=== PATIENT | female | born 1955 | race African-American/Black ===

== ENCOUNTER 2021-12-11 04:54 | Inpatient (IN) | payer MEDICARE, MEDICAID ==
[~2021-12-11] VITALS: Ht 162.6 cm; Wt 69.1 kg
--- NOTE | 2021-12-11 05:06 | PHYS DOC ---
General Adult EDM: Chief Complaint: NAUSEA/VOMITING/DIARRHEA HPI: HPI: Patient is a 66 year old [f__sex] who presents with [] (SCOOBYLEONCIO LYMAN ) HPI: This is a 66-year-old female presents with nausea and vomiting since last night as well as some shortness of breath and chest discomfort. She has had a cough productive of some thick yellow sputum. She has felt febrile at home but it is unclear what her temperature has been. She is short of breath particularly with exertion and less so at rest. Chest pain present with coughing. Patient has been vaccinated for Covid. No sick contacts. No recent trauma. No diarrhea. (NUBIA HIDALGO MD) Review of Systems: Review of Systems: Constitutional: Denies fever or chills. [] Eyes: Denies change in visual acuity. [] HENT: Denies nasal congestion or sore throat. [] Respiratory: Denies cough or shortness of breath. [] Cardiovascular: Denies chest pain or edema. [] GI: Denies abdominal pain, nausea, vomiting, bloody stools or diarrhea. [] : Denies dysuria. [] Musculoskeletal: Denies back pain or joint pain. [] Integument: Denies rash. [] Neurologic: Denies headache, focal weakness or sensory changes. [] Endocrine: Denies polyuria or polydipsia. [] Lymphatic: Denies swollen glands. [] Psychiatric: Denies depression or anxiety. [] (LEONCIO ALMODOVAR DO) Review of Systems: Constitutional: Positive for fever Eyes: Denies change in visual acuity or eye pain HENT: Denies sore throat Respiratory: Reports shortness of breath Cardiovascular: Reports chest pain GI: Reports abd pain : Denies dysuria Musculoskeletal: Denies back or extremity injury Integument: Denies rash or skin lesions Neurologic: Denies headache, focal weakness or sensory changes All other systems were reviewed and found to be within normal limits, except as documented in this note. (NUBIA HIDALGO MD) Heart Score: Risk Factors: Risk Factors: DM, Current or recent (<one month) smoker, HTN, HLP, family history of CAD, obesity. Risk Scores: Score 0 - 3: 2.5% MACE over next 6 weeks - Discharge Home Score 4 - 6: 20.3% MACE over next 6 weeks - Admit for Clinical Observation Score 7 - 10: 72.7% MACE over next 6 weeks - Early Invasive Strategies (SCOOBY,LEONCIO M DO) C/O Chest Pain: Yes HEART Score for Chest Pain: HEART Score for Chest Pain Response (Comments) Value History Slighlty/Non-Suspicious 0 ECG Nonspecific Repolarizatio 1 Age > 65 2 Risk Factors 1 or 2 Risk Factors 1 Troponin < Normal Limit 0 Total 4 (NUBIA HIDALGO MD) Physical Exam: PE: Constitutional: Well developed, well nourished, no acute distress, non-toxic appearance. [] HENT: Normocephalic, atraumatic, bilateral external ears normal, oropharynx moist, no oral exudates, nose normal. [] Eyes: PERRLA, EOMI, conjunctiva normal, no discharge. [] Neck: Normal range of motion, no tenderness, supple, no stridor. [] Cardiovascular:Heart rate regular rhythm, no murmur [] Lungs & Thorax: Bilateral breath sounds clear to auscultation [] Abdomen: Bowel sounds normal, soft, no tenderness, no masses, no pulsatile masses. [] Skin: Warm, dry, no erythema, no rash. [] Back: No tenderness, no CVA tenderness. [] Extremities: No tenderness, no cyanosis, no clubbing, ROM intact, no edema. [] Neurologic: Alert and oriented X 3, normal motor function, normal sensory function, no focal deficits noted. [] Psychologic: Affect normal, judgement normal, mood normal. [] (SCOOBY,LEONCIO M DO) PE: Constitutional: Well developed, well nourished, mild distress secondary to na usea and coughing, non-toxic appearance. HENT: Normocephalic, atraumatic, bilateral external ears normal, mucosa moist, nose normal. Eyes: EOMI, conjunctiva normal, no discharge. Neck: Normal range of motion, supple, no stridor, no meningeal signs. Cardiovascular: Patient is tachycardic with a rate of about 130, regular rhythm Lungs & Thorax: Scattered wheezes present bilaterally with overall good air exchange Abdomen: Soft, mild generalized tenderness, no obvious masses Skin: Warm, dry, no erythema, no rash. Extremities: No tenderness, no cyanosis, no clubbing, ROM intact, no edema. Neurologic: Alert and oriented, normal motor function, normal sensory function, no focal deficits noted. Psychologic: Affect normal, judgement normal, mood normal. (NUBIA HIDALGO MD) EKG: EKG: [] (SCOOBYJAYN Susan MCBRIDE) EKG: Twelve-lead EKG demonstrates a sinus rhythm with a rate of 129 bpm. [place] interval is 126 ms, QRS is 76 and QT corrected is 468. No ST segment elevation or depression.there is quite a bit of artifact present on the EKG. Good R wave progression no clinically pertinent Q waves. (NUBIA HIDALGO MD) Radiology/Procedures: Radiology/Procedures: [] (SCOOBYJAY LYMANN Susan MCBRIDE) Impression: PATIENT: ANGEL RODRIGUEZ ACCOUNT: [id number] : 1955 LOCATION: ER AGE: 66 SEX: F EXAM STATUS: PRE ER ORD. PHYSICIAN: NUBIA HIDALGO MD REASON: dyspnea, abd pain;OMNI 300, 75ML PROCEDURE: CT CHEST ABD PELVIS W/CONTRAST EXAM: CT CHEST, ABDOMEN, AND PELVIS WITH CONTRAST INDICATION: Dyspnea, abdominal pain COMPARISON: None TECHNIQUE: Helical CT imaging performed of the chest, abdomen and pelvis after administration of 75 mL Omnipaque 300 intravenous contrast. Sagittal and coronal reformats were obtained. One or more of the following individualized dose reduction techniques were utilized for this examination: 1. Automated exposure control 2. Adjustment of the mA and/or kV according to patient size 3. Use of iterative reconstruction technique. FINDINGS: CHEST: Thyroid gland and thoracic inlet: Normal. Heart and great vessels: The heart is normal in size. There is no pericardial effusion. Thoracic aorta is normal in caliber. Central pulmonary arteries are clear. Mediastinum and river: No lymphadenopathy. Lungs and pleura: The lungs are clear. No pleural effusion or pneumothorax. Chest wall and axillae: No axillary lymphadenopathy. Bones: No acute osseous abnormality in the chest. There is dextroscoliosis of the thoracic spine. ABDOMEN AND PELVIS: Liver: Normal. Gallbladder/Biliary Tree: Normal. Pancreas: Normal. Spleen: Normal. Adrenal Glands: Normal. Kidneys/Ureters/Bladder: Normal. No hydronephrosis. Reproductive Organs: Uterus is surgically absent. No adnexal mass. Stomach, small bowel, and colon: Stomach, small bowel, and appendix are normal. Mild colonic diverticulosis. Vasculature: No aortic aneurysm. Mild calcified aortoiliac atherosclerosis. Lymph Nodes: No lymphadenopathy. Peritoneum and retroperitoneum: No free fluid or free air. Bones: No acute osseous abnormality in the abdomen and pelvis. Mild degenerative disc disease at L3-L4 and L4-L5. IMPRESSION: 1. No acute abnormality in the chest, abdomen, or pelvis. 2. Mild colonic diverticulosis. Electronically signed by: Bienvenido Calderon MD (12/11/2021 7:10 AM) [facility] DICTATED and SIGNED BY: BIENVENIDO CALDERON MD DATE: 12/11/21 [id number] (NUBIA HIDALGO MD) Course & Med Decision Making: Course & Med Decision Making Pertinent Labs and Imaging studies reviewed. (See chart for details) [] (LEONCIO ALMODOVAR DO) Course & Med Decision Making Is a 66-year-old female with nausea and vomiting. She has received IV fluids with Zofran and Pepcid in the ED and really did not have much resolution of symptoms. She has stated that she has had some pain coughing but on CT scan of the chest abdomen pelvis there is no evidence of pneumonia, pneumothorax or other acute process. An EKG there was quite a bit of artifact on the first but on the second there was mild ST depression in the inferior leads and the lateral precordial leads. Her troponin is well within normal limits though. We sent off a repeat and we will keep her in the hospital as her heart rate remains in the 1 teens or at this time even after the IV fluids. I spoke with the hospitalist, Dr Bhandari, who has been kind left to keep her in the hospital for observation and further work-up as indicated, she is in stable guarded condition at this time. (NUBIA HIDALGO MD) Dragon Disclaimer: Dragon Disclaimer: This electronic medical record was generated, in whole or in part, using a voice recognition dictation system. (LEONCIO ALMODOVAR DO) Departure Departure Impression: Primary Impression: Intractable nausea and vomiting Additional Impression: Sinus tachycardia Disposition: ADMITTED INPATIENT Condition: GUARDED LEONCIO ALMODOVAR DO Dec 11, 2021 05:06 NUBIA HIDALGO MD Dec 11, 2021 05:24
[2021-12-11] MEDS ORDERED: ONDANSETRON PF 4 MG/2 ML VIAL. ONE (05:39)
[2021-12-11] MEDS ORDERED: PANTOPRAZOLE IV PUSH 40 MG VIAL. IVP ONE (05:40)
[2021-12-11] MEDS ORDERED: CONTRAST GIVEN. MC PRN (05:45)
[2021-12-11 05:59] LABS: BASO % 1 % (0-3); EOS % 0 % (0-3); HEMATOCRIT 41.3 % (36.0-47.0); LYMPH # 2.6 x10^3/uL (1.0-4.8); LYMPH % 42 % (24-48); MEAN CORPUSCULAR HEMOGLOBIN 28 pg (25-35); MEAN CORPUSCULAR HGB CONC 34 g/dL (31-37); MEAN CORPUSCULAR VOLUME 81 fL (79-100); MONO # 0.7 x10^3/uL (0.0-1.1); MONO % 12 % (0-9); NEUT # 2.8 x10^3/uL (1.8-7.7); NEUT % 45 % (31-73); PLATELET COUNT 341 x10^3/uL (140-400); RED BLOOD COUNT 5.07 x10^6/uL (3.50-5.40); RED CELL DISTRIBUTION WIDTH 13.3 % (11.5-14.5); WHITE BLOOD COUNT 6.1 x10^3/uL (4.0-11.0)
[2021-12-11 06:00] LABS: CALCIUM 9.1 mg/dL (8.5-10.1); CREATININE 0.7 mg/dL (0.6-1.0); POTASSIUM 3.3 mmol/L (3.5-5.1)
[2021-12-11] MEDS ORDERED: ONDANSETRON PF 4 MG/2 ML VIAL. IVP ONE (06:00)
[2021-12-11] MEDS ORDERED: IV NORMAL SALINE 1000ML BAG 1,000 ML IV ONE ×2 (06:00→07:00)
[2021-12-11] MEDS ORDERED: FAMOTIDINE 20 MG/2 ML VIAL IVP ONE (06:00)
[2021-12-11] MEDS ORDERED: IOHEXOL 300 MG/ML 100ML VIAL. IV ONE (06:00)
[2021-12-11 06:06] LABS: ALBUMIN 3.7 g/dL (3.4-5.0); ALBUMIN/GLOBULIN RATIO 0.9 (1.0-1.7); TOTAL BILIRUBIN 0.5 mg/dL (0.2-1.0); TOTAL PROTEIN 7.9 g/dL (6.4-8.2)
[2021-12-11 06:08] LABS: PROTHROMBIN TIME PATIENT 12.3 SEC (11.7-14.0)
[2021-12-11 06:19] LABS: INFLUENZA A PATIENT NEGATIVE (NEGATIVE); INFLUENZA B PATIENT NEGATIVE (NEGATIVE)
[2021-12-11] MEDS ORDERED: MORPHINE SULFATE 2 MG/ML INJ. IVP ONE (07:00)
[2021-12-11] MEDS ORDERED: PROMETHAZINE 12.5 MG TABLET. PO ONE (07:00)
--- NOTE | 2021-12-11 07:12 | RAD ---
EXAM: CT CHEST, ABDOMEN, AND PELVIS WITH CONTRAST INDICATION: Dyspnea, abdominal pain COMPARISON: None TECHNIQUE: Helical CT imaging performed of the chest, abdomen and pelvis after administration of 75 m L Omnipaque 300 intravenous contrast. Sagittal and coronal reformats were obtained. One or more of the following individualized dose reduction techniques were utilized for this examinat ion: 1. Automated exposure control 2. Adjustment of the mA and/or kV according to patient size 3. Use of iterative reconstruction technique. FINDINGS: CHEST: Thyroid gland and thoracic inlet: Normal. Heart and great vessels: The heart is normal in size. There is no pericardial effusion. Thoracic aort a is normal in caliber. Central pulmonary arteries are clear. Mediastinum and river: No lymphadenopathy. Lungs and pleura: The lungs are clear. No pleural effusion or pneumothorax. Chest wall and axillae: No axillary lymphadenopathy. Bones: No acute osseous abnormality in the chest. There is dextroscoliosis of the thoracic spine. ABDOMEN AND PELVIS: Liver: Normal. Gallbladder/Biliary Tree: Normal. Pancreas: Normal. Spleen: Normal. Adrenal Glands: Normal. Kidneys/Ureters/Bladder: Normal. No hydronephrosis. Reproductive Organs: Uterus is surgically absent. No adnexal mass. Stomach, small bowel, and colon: Stomach, small bowel, and appendix are normal. Mild colonic divertic ulosis. Vasculature: No aortic aneurysm. Mild calcified aortoiliac atherosclerosis. Lymph Nodes: No lymphadenopathy. Peritoneum and retroperitoneum: No free fluid or free air. Bones: No acute osseous abnormality in the abdomen and pelvis. Mild degenerative disc disease at L3-L 4 and L4-L5. IMPRESSION: 1. No acute abnormality in the chest, abdomen, or pelvis. 2. Mild colonic diverticulosis. Electronically signed by: Dora Calderon MD (12/11/2021 7:10 AM) [facility]
[2021-12-11] MEDS ORDERED: NITROGLYCERIN OINT 1 GM PACKET. TP ONE (07:30)
[2021-12-11] MEDS ORDERED: ASPIRIN CHEWABLE 81 MG TABLET. PO ONE (07:30)
--- NOTE | 2021-12-11 07:31 | EKG ---
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
--- NOTE | 2021-12-11 08:51 | PDOC1 ---
History and Physical Date of Service: DOS: DATE: 12/11/21 TIME: 08:50 Chief Complaint: Chief Complain: Nausea vomiting and diarrhea History of Present Illness: HPI: History obtained from discussion with the ED physician and chart review: 66-year-old female with no significant past medical history except for marijuana use daily for glaucoma who comes in with chest discomfort and abdominal pain. She also endorses diarrhea that is mucousy and also some vomiting after that. She states that she had a cold sweat at home but she is unable to tell us what temperature she had. Patient is Covid vaccinated. Patient states that when she was walking she might of tripped and fell and landed her right side of her rib. She states that her chest discomfort mainly comes from this incident. 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 Denies any palpitations, syncope, constipation, or bloody stools or hematemesis. Patient has shortness of breath while at rest. Past Medical/Surgical History: PMH/PSH: Glaucoma Allergies: Allergies: Coded Allergies: No Known Drug Allergies (Unverified , 12/11/21) Family History: Family History: Reviewed with no relevant findings in the chart Social History: Social History: Daily marijuana use Current Medications: Current Medications Current Medications Sodium Chloride 1,000 ml @ 1,000 mls/hr 1X ONCE IV Last administered on 12/11/21at 05:43; Start 12/11/21 at 06:00; Stop 12/11/21 at 06:59; Status DC Ondansetron HCl (Zofran) 4 mg 1X ONCE IVP Last administered on 12/11/21at 05:43; Start 12/11/21 at 06:00; Stop 12/11/21 at 06:01; Status DC Famotidine (Pepcid Vial) 20 mg 1X ONCE IVP Last administered on 12/11/21at 05:45; Start 12/11/21 at 06:00; Stop 12/11/21 at 06:01; Status DC Iohexol (Omnipaque 300 Mg/ml) 75 ml 1X ONCE IV Last administered on 12/11/21at 06:15; Start 12/11/21 at 06:00; Stop 12/11/21 at 06:01; Status DC Ondansetron HCl (Zofran) 4 mg STK-MED ONCE .ROUTE ; Start 12/11/21 at 05:39; Stop 12/11/21 at 05:40; Status DC Pantoprazole Sodium (PROTONIX VIAL for IV PUSH) 40 mg STK-MED ONCE IVP ; Start 12/11/21 at 05:40; Stop 12/11/21 at 05:40; Status DC Info (CONTRAST GIVEN -- Rx MONITORING) 1 each PRN DAILY PRN MC SEE COMMENTS; Start 12/11/21 at 05:45; Stop 12/13/21 at 05:44 Sodium Chloride 1,000 ml @ 1,000 mls/hr 1X ONCE IV Last administered on 12/11/21at 07:00; Start 12/11/21 at 07:00; Stop 12/11/21 at 07:59; Status DC Promethazine HCl (Phenergan) 25 mg 1X ONCE PO Last administered on 12/11/21at 07:00; Start 12/11/21 at 07:00; Stop 12/11/21 at 07:01; Status DC Morphine Sulfate (Morphine Sulfate) 2 mg 1X ONCE IVP Last administered on 12/11/21at 07:00; Start 12/11/21 at 07:00; Stop 12/11/21 at 07:01; Status DC Aspirin (Aspirin Chewable) 324 mg 1X ONCE PO Last administered on 12/11/21at 07:30; Start 12/11/21 at 07:30; Stop 12/11/21 at 07:32; Status DC Nitroglycerin (Nitro-Bid Oint) 0.5 inch 1X ONCE TP Last administered on 12/11/21at 07:30; Start 12/11/21 at 07:30; Stop 12/11/21 at 07:32; Status DC ROS: Review of Systems Review of System REVIEW OF SYSTEMS: GENERAL: Denies weakness SKIN: No bruising, hair changes or rashes. EYES: No blurred, double or loss of vision. NOSE AND THROAT: No history of nosebleeds, hoarseness or sore throat. HEART: No history of palpitations, chest pain or shortness of breath on exertion. LUNGS: Denies cough, hemoptysis, wheezing or shortness of breath. GASTROINTESTINAL: Positive for nausea vomiting abdominal pain and diarrhea GENITOURINARY: No history of frequency, urgency, hesitancy or nocturia. NEUROLOGIC: Denies history of numbness, tingling, or tremor. PSYCHIATRIC: No history of panic, anxiety or depression. ENDOCRINE: No history of heat or cold intolerance, polyuria or polydipsia. EXTREMITIES: Denies joint pain, pain on walking or stiffness. Physical Exam: Vital Signs: Vital Signs Date Time Temp Pulse Resp B/P (MAP) Pulse Ox O2 Delivery O2 Flow Rate FiO2 12/11/21 07:35 128 18 164/79 (107) 97 Room Air 12/11/21 04:54 98.1 98.1 Physcial Exam: General: Well developed, well nourished, no acute distress, well appearing HEENT: Pupils equally round and reactive to light, EOMI, no discharge, normal conjunctiva. Dry mucous membranes Neck: Supple, no nuchal rigidity, no JVD, trachea midline, no tenderness Cardiac: RRR, no murmurs, no gallops, no rubs Chest/Lungs: CTAB, no wheeze, no rhonchi, no crackles Abdomen: soft, non-distended, no guarding, no peritoneal signs, diffuse abdominal tenderness Back: No tenderness Extremities: no edema, pulses intact, non-tender,capillary refill <3 sec bilate ral upper and lower extremities, Neuro: Alert and oriented x 4, no focal deficits, normal speech Labs: Labs: Laboratory Tests Test 12/11/21 05:25 12/11/21 05:52 White Blood Count 6.1 x10^3/uL (4.0-11.0) Red Blood Count 5.07 x10^6/uL (3.50-5.40) Hemoglobin 14.0 g/dL (12.0-15.5) Hematocrit 41.3 % (36.0-47.0) Mean Corpuscular Volume 81 fL (79-100) Mean Corpuscular Hemoglobin 28 pg (25-35) Mean Corpuscular Hemoglobin Concent 34 g/dL (31-37) Red Cell Distribution Width 13.3 % (11.5-14.5) Platelet Count 341 x10^3/uL (140-400) Neutrophils (%) (Auto) 45 % (31-73) Lymphocytes (%) (Auto) 42 % (24-48) Monocytes (%) (Auto) 12 % (0-9) Eosinophils (%) (Auto) 0 % (0-3) Basophils (%) (Auto) 1 % (0-3) Neutrophils # (Auto) 2.8 x10^3/uL (1.8-7.7) Lymphocytes # (Auto) 2.6 x10^3/uL (1.0-4.8) Monocytes # (Auto) 0.7 x10^3/uL (0.0-1.1) Eosinophils # (Auto) 0.0 x10^3/uL (0.0-0.7) Basophils # (Auto) 0.0 x10^3/uL (0.0-0.2) Prothrombin Time 12.3 SEC (11.7-14.0) Prothromb Time International Ratio 0.9 (0.8-1.1) Activated Partial Thromboplast Time 26 SEC (24-38) Sodium Level 131 mmol/L (136-145) Potassium Level 3.3 mmol/L (3.5-5.1) Chloride Level 96 mmol/L (98-107) Carbon Dioxide Level 21 mmol/L (21-32) Anion Gap 14 (6-14) Blood Urea Nitrogen 12 mg/dL (7-20) Creatinine 0.7 mg/dL (0.6-1.0) Estimated GFR (Cockcroft-Gault) 84.0 BUN/Creatinine Ratio 17 (6-20) Glucose Level 190 mg/dL (70-99) Lactic Acid Level 1.8 mmol/L (0.4-2.0) Calcium Level 9.1 mg/dL (8.5-10.1) Magnesium Level 2.0 mg/dL (1.8-2.4) Total Bilirubin 0.5 mg/dL (0.2-1.0) Aspartate Amino Transf (AST/SGOT) 58 U/L (15-37) Alanine Aminotransferase (ALT/SGPT) 49 U/L (14-59) Alkaline Phosphatase 86 U/L (46-116) Troponin I High Sensitivity 12 ng/L (4-50) GM-Day-Z-Type Natriuretic Peptide 208 pg/mL (0-124) Total Protein 7.9 g/dL (6.4-8.2) Albumin 3.7 g/dL (3.4-5.0) Albumin/Globulin Ratio 0.9 (1.0-1.7) Lipase 28 U/L (73-393) Influenza Type A Antigen Negative (NEGATIVE) Influenza Type B Antigen Negative (NEGATIVE) SARS-CoV-2 Antigen (Rapid) Negative (NEGATIVE) Laboratory Tests Test 12/11/21 05:25 12/11/21 05:52 White Blood Count 6.1 x10^3/uL (4.0-11.0) Red Blood Count 5.07 x10^6/uL (3.50-5.40) Hemoglobin 14.0 g/dL (12.0-15.5) Hematocrit 41.3 % (36.0-47.0) Mean Corpuscular Volume 81 fL (79-100) Mean Corpuscular Hemoglobin 28 pg (25-35) Mean Corpuscular Hemoglobin Concent 34 g/dL (31-37) Red Cell Distribution Width 13.3 % (11.5-14.5) Platelet Count 341 x10^3/uL (140-400) Neutrophils (%) (Auto) 45 % (31-73) Lymphocytes (%) (Auto) 42 % (24-48) Monocytes (%) (Auto) 12 % (0-9) Eosinophils (%) (Auto) 0 % (0-3) Basophils (%) (Auto) 1 % (0-3) Neutrophils # (Auto) 2.8 x10^3/uL (1.8-7.7) Lymphocytes # (Auto) 2.6 x10^3/uL (1.0-4.8) Monocytes # (Auto) 0.7 x10^3/uL (0.0-1.1) Eosinophils # (Auto) 0.0 x10^3/uL (0.0-0.7) Basophils # (Auto) 0.0 x10^3/uL (0.0-0.2) Prothrombin Time 12.3 SEC (11.7-14.0) Prothromb Time International Ratio 0.9 (0.8-1.1) Activated Partial Thromboplast Time 26 SEC (24-38) Sodium Level 131 mmol/L (136-145) Potassium Level 3.3 mmol/L (3.5-5.1) Chloride Level 96 mmol/L (98-107) Carbon Dioxide Level 21 mmol/L (21-32) Anion Gap 14 (6-14) Blood Urea Nitrogen 12 mg/dL (7-20) Creatinine 0.7 mg/dL (0.6-1.0) Estimated GFR (Cockcroft-Gault) 84.0 BUN/Creatinine Ratio 17 (6-20) Glucose Level 190 mg/dL (70-99) Lactic Acid Level 1.8 mmol/L (0.4-2.0) Calcium Level 9.1 mg/dL (8.5-10.1) Magnesium Level 2.0 mg/dL (1.8-2.4) Total Bilirubin 0.5 mg/dL (0.2-1.0) Aspartate Amino Transf (AST/SGOT) 58 U/L (15-37) Alanine Aminotransferase (ALT/SGPT) 49 U/L (14-59) Alkaline Phosphatase 86 U/L (46-116) Troponin I High Sensitivity 12 ng/L (4-50) YQ-Dvz-F-Type Natriuretic Peptide 208 pg/mL (0-124) Total Protein 7.9 g/dL (6.4-8.2) Albumin 3.7 g/dL (3.4-5.0) Albumin/Globulin Ratio 0.9 (1.0-1.7) Lipase 28 U/L (73-393) Influenza Type A Antigen Negative (NEGATIVE) Influenza Type B Antigen Negative (NEGATIVE) SARS-CoV-2 Antigen (Rapid) Negative (NEGATIVE) Images: Images PROCEDURE: CT CHEST ABD PELVIS W/CONTRAST EXAM: CT CHEST, ABDOMEN, AND PELVIS WITH CONTRAST INDICATION: Dyspnea, abdominal pain COMPARISON: None TECHNIQUE: Helical CT imaging performed of the chest, abdomen and pelvis after administration of 75 mL Omnipaque 300 intravenous contrast. Sagittal and coronal reformats were obtained. One or more of the following individualized dose reduction techniques were utilized for this examination: 1. Automated exposure control 2. Adjustment of the mA and/or kV according to patient size 3. Use of iterative reconstruction technique. FINDINGS: CHEST: Thyroid gland and thoracic inlet: Normal. Heart and great vessels: The heart is normal in size. There is no pericardial effusion. Thoracic aorta is normal in caliber. Central pulmonary arteries are clear. Mediastinum and rvier: No lymphadenopathy. Lungs and pleura: The lungs are clear. No pleural effusion or pneumothorax. Chest wall and axillae: No axillary lymphadenopathy. Bones: No acute osseous abnormality in the chest. There is dextroscoliosis of the thoracic spine. ABDOMEN AND PELVIS: Liver: Normal. Gallbladder/Biliary Tree: Normal. Pancreas: Normal. Spleen: Normal. Adrenal Glands: Normal. Kidneys/Ureters/Bladder: Normal. No hydronephrosis. Reproductive Organs: Uterus is surgically absent. No adnexal mass. Stomach, small bowel, and colon: Stomach, small bowel, and appendix are normal. Mild colonic diverticulosis. Vasculature: No aortic aneurysm. Mild calcified aortoiliac atherosclerosis. Lymph Nodes: No lymphadenopathy. Peritoneum and retroperitoneum: No free fluid or free air. Bones: No acute osseous abnormality in the abdomen and pelvis. Mild degenerative disc disease at L3-L4 and L4-L5. IMPRESSION: 1. No acute abnormality in the chest, abdomen, or pelvis. 2. Mild colonic diverticulosis. Assessment/Plan Assessment/Plan Intractable nausea vomiting, possible gastroenteritis Chronic cannabinoid use, concern for cyclic vomiting syndrome Mild hypokalemia Acute electrolyte derangementhyponatremia, hypochloremia suggestive of volume depletion Atypical chest pain due to musculoskeletal trauma Admit to hospitalist service for further management Continue IV fluids Pending stool studies ADA T Continue telemetry monitoring Pending UDS Lovenox for DVT prophylaxis Protonix GI prophylaxis Cardiac diet CODE STATUS full Discussed with RN and SW Disposition inpatient management as above DPOA: Daughter In addition to my E/M visit, advance care planning done with A total time of 20 minutes was spent from 1130 to 1150 face to face in discussion regarding the patient's goals of care, CODE STATUS. Justifications for Admission Other Justification MARKEL QUIÑONEZ MD Dec 11, 2021 08:51
[2021-12-11 11:00] VITALS: BP 143/97
[2021-12-11] MEDS ORDERED: GABA300C18 PO (12:10)
[2021-12-11] MEDS ORDERED: PANT40TA77 PO (12:10)
[2021-12-11] MEDS ORDERED: FAMO-63 PO (12:10)
[2021-12-11] MEDS ORDERED: AMLO-187 PO (12:10)
[2021-12-11] MEDS ORDERED: DIPH25CA58 PO (12:10)
[2021-12-11] MEDS ORDERED: MECL12.582 PO (12:10)
[2021-12-11] MEDS ORDERED: METO200T46 PO (12:10)
[2021-12-11] MEDS ORDERED: TRAM50TA PO (12:10)
[2021-12-11] MEDS ORDERED: CYCL10TA19 PO (12:13)
[2021-12-11] MEDS ORDERED: SITA50TA PO (12:13)
[2021-12-11] MEDS ORDERED: diphenhydrAMINE 50 MG/ML VIAL IVP PRN (14:45)
[2021-12-11] MEDS ORDERED: ZOLPIDEM 5 MG TABLET. PO PRN (14:45)
[2021-12-11] MEDS ORDERED: SENNOSIDES 8.6 MG TABLET PO PRN (14:45)
[2021-12-11] MEDS ORDERED: PROCHLORPERAZINE 10 MG/2 ML VIAL. IV PRN (14:45)
[2021-12-11] MEDS ORDERED: DOCUSATE SODIUM 100 MG CAPSULE. PO PRN (14:45)
[2021-12-11] MEDS ORDERED: DEXTROSE 50% 25 GM / 50ML DISP.SYRIN. IV PRN (14:45)
[2021-12-11] MEDS ORDERED: LORazepam 0.5 MG TABLET PO PRN (14:45)
[2021-12-11] MEDS ORDERED: diphenhydrAMINE HCL 25 MG CAPSULE PO PRN ×2 (14:45)
[2021-12-11 15:00] VITALS: BP 166/96
[2021-12-11] MEDS: ACETAMINOPHEN 325 MG TABLET. PO PRN ×2 (15:58→23:41)
[2021-12-11] MEDS: IV NORMAL SALINE 1000ML BAG 1,000 ML IV SCH (15:59)
[2021-12-11] MEDS: ENOXAPARIN 40 MG/0.4 ML SYRINGE. SQ SCH (16:00)
[2021-12-11] MEDS: ONDANSETRON PF 4 MG/2 ML VIAL. IVP PRN (18:33)
[2021-12-11 19:00] VITALS: BP_SYST 133; BP_SYST 138; BP_DIAS 88; BP_DIAS 94
[2021-12-11 23:00] VITALS: BP 138/94
[2021-12-12] MEDS: IV NORMAL SALINE 1000ML BAG 1,000 ML IV SCH ×3 (00:45→21:03)
[2021-12-12 03:00] VITALS: BP 136/86
[2021-12-12] MEDS: ONDANSETRON PF 4 MG/2 ML VIAL. IVP PRN ×2 (04:11→15:35)
[2021-12-12 06:18] LABS: CALCIUM 7.7 mg/dL (8.5-10.1); CREATININE 0.7 mg/dL (0.6-1.0); GFR 101.6; MAGNESIUM 1.7 mg/dL (1.8-2.4); PHOSPHORUS 2.3 mg/dL (2.6-4.7)
[2021-12-12 07:00] VITALS: BP 148/92
[2021-12-12 07:14] LABS: BASO % 1 % (0-3); EOS % 1 % (0-3); HEMATOCRIT 37.9 % (36.0-47.0); HEMOGLOBIN 12.4 g/dL (12.0-15.5); LYMPH # 3.1 x10^3/uL (1.0-4.8); LYMPH % 60 % (24-48); MEAN CORPUSCULAR HEMOGLOBIN 28 pg (25-35); MEAN CORPUSCULAR HGB CONC 33 g/dL (31-37); MEAN CORPUSCULAR VOLUME 85 fL (79-100); MONO # 0.7 x10^3/uL (0.0-1.1); MONO % 14 % (0-9); NEUT # 1.3 x10^3/uL (1.8-7.7); NEUT % 25 % (31-73); PLATELET COUNT 315 x10^3/uL (140-400); RED BLOOD COUNT 4.47 x10^6/uL (3.50-5.40); WHITE BLOOD COUNT 5.2 x10^3/uL (4.0-11.0)
[2021-12-12] MEDS: ACETAMINOPHEN 325 MG TABLET. PO PRN ×2 (07:41→13:43)
[2021-12-12] MEDS: PANTOPRAZOLE IV PUSH 40 MG VIAL. IVP SCH (07:41)
[2021-12-12] MEDS: POTASSIUM CHLORIDE 20 MEQ TABLET.ER. PO SCH ×2 (09:49→21:04)
[2021-12-12] MEDS ORDERED: MAGNESIUM SULFATE 2GM 50 ML IV ONE (10:00)
[2021-12-12 11:00] VITALS: BP 165/89
[2021-12-12] MEDS ORDERED: PHENYLEPH/MINERAL OIL/PETROLAT RECTAL OINTMENT TUBE. RC PRN (11:00)
--- NOTE | 2021-12-12 11:25 | NUR ---
SW following. Discussed with RN, pt from home with s/o, room air, clear liquid diet, rapid COVID-19 negative. RN advised no SW needs at this time, possible discharge in the next 24-48 hours. SW will continue to follow.
[2021-12-12] MEDS: ENOXAPARIN 40 MG/0.4 ML SYRINGE. SQ SCH (13:43)
[2021-12-12 14:16] LABS: AMPHETAMINE/METHAMPHETAMINE NEG (NEG); BARBITURATES NEG (NEG); BENZODIAZEPINES NEG (NEG); CANNABINOIDS POS (NEG); COCAINE NEG (NEG); METHADONE NEG (NEG); OPIATES NEG (NEG); PHENCYCLIDINE NEG (NEG)
--- NOTE | 2021-12-12 14:21 | PDOC ---
[employer] PROGRESS NOTE Date of Service DOS: DATE: 12/12/21 TIME: 14:20 Chief Complaint Chief Complaint Assessment/Plan Intractable nausea vomiting, possible gastroenteritis Chronic cannabinoid use, concern for cyclic vomiting syndrome Mild hypokalemia Acute electrolyte derangementhyponatremia, hypochloremia suggestive of volume depletion Atypical chest pain due to musculoskeletal trauma Admit to hospitalist service for further management Continue IV fluids Pending stool studies ADA T Continue telemetry monitoring Pending UDS Lovenox for DVT prophylaxis Protonix GI prophylaxis Cardiac diet CODE STATUS full Discussed with RN and SW Disposition inpatient management as above DPOA: Daughter History of Present Illness History of Present Illness 66-year-old female with no significant past medical history except for marijuana use daily for glaucoma who comes in with chest discomfort and abdominal pain. She also endorses diarrhea that is mucousy and also some vomiting after that. She states that she had a cold sweat at home but she is unable to tell us what temperature she had. Patient is Covid vaccinated. Patient states that when she was walking she might of tripped and fell and landed her right side of her rib. She states that her chest discomfort mainly comes from this incident. 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 Denies any palpitations, syncope, constipation, or bloody stools or hematemesis. Patient has shortness of breath while at rest. 12/12/2021 No acute events overnight. Patient seen examined bedside. Low potassium of 3.0 and magnesium of 1.7. Pending T4 levels. No more nausea vomiting. Continues to have diarrhea. Pending stool studies. Continue with IV fluids. Patient's chart, labs, images were reviewed and discussed with RN Vitals/I&O Vitals/I&O: Vital Signs Date Time Temp Pulse Resp B/P (MAP) Pulse Ox O2 Delivery O2 Flow Rate FiO2 12/12/21 11:00 97.7 111 20 165/89 (114) 97 Room Air 97.7 I & O 12/11/21 12/11/21 12/12/21 15:00 23:00 07:00 Intake Total 180 ml 300 ml 240 ml Balance 180 ml 300 ml 240 ml Physical Exam General: Alert, Oriented X3, Cooperative Heart: Regular rate Lungs: Clear Abdomen: Normal bowel sounds Extremities: No clubbing Skin: No rashes Labs Labs: Laboratory Tests Test 12/12/21 04:40 12/12/21 13:40 White Blood Count 5.2 x10^3/uL (4.0-11.0) Red Blood Count 4.47 x10^6/uL (3.50-5.40) Hemoglobin 12.4 g/dL (12.0-15.5) Hematocrit 37.9 % (36.0-47.0) Mean Corpuscular Volume 85 fL (79-100) Mean Corpuscular Hemoglobin 28 pg (25-35) Mean Corpuscular Hemoglobin Concent 33 g/dL (31-37) Red Cell Distribution Width 13.0 % (11.5-14.5) Platelet Count 315 x10^3/uL (140-400) Neutrophils (%) (Auto) 25 % (31-73) Lymphocytes (%) (Auto) 60 % (24-48) Monocytes (%) (Auto) 14 % (0-9) Eosinophils (%) (Auto) 1 % (0-3) Basophils (%) (Auto) 1 % (0-3) Neutrophils # (Auto) 1.3 x10^3/uL (1.8-7.7) Lymphocytes # (Auto) 3.1 x10^3/uL (1.0-4.8) Monocytes # (Auto) 0.7 x10^3/uL (0.0-1.1) Eosinophils # (Auto) 0.0 x10^3/uL (0.0-0.7) Basophils # (Auto) 0.0 x10^3/uL (0.0-0.2) Sodium Level 142 mmol/L (136-145) Potassium Level 3.0 mmol/L (3.5-5.1) Chloride Level 104 mmol/L (98-107) Carbon Dioxide Level 25 mmol/L (21-32) Anion Gap 13 (6-14) Blood Urea Nitrogen 3 mg/dL (7-20) Creatinine 0.7 mg/dL (0.6-1.0) Estimated GFR (Cockcroft-Gault) 101.6 Glucose Level 155 mg/dL (70-99) Calcium Level 7.7 mg/dL (8.5-10.1) Phosphorus Level 2.3 mg/dL (2.6-4.7) Magnesium Level 1.7 mg/dL (1.8-2.4) Urine Opiates Screen Neg (NEG) Urine Methadone Screen Neg (NEG) Urine Barbiturates Neg (NEG) Urine Phencyclidine Screen Neg (NEG) Urine Amphetamine/Methamphetamine Neg (NEG) Urine Benzodiazepines Screen Neg (NEG) Urine Cocaine Screen Neg (NEG) Urine Cannabinoids Screen Pos (NEG) Urine Ethyl Alcohol Neg (NEG) Assessment and Plan Assessmemt and Plan Problems Medical Problems: (1) Intractable nausea and vomiting Status: Acute (2) Sinus tachycardia Status: Acute Comment Review of Relevant I have reviewed the following items kristy (where applicable) has been applied. Medications: Current Medications Medications (Trade) Dose Ordered Sig/Ailyn Route PRN Reason Start Time Stop Time Status Last Admin Dose Admin Ondansetron HCl (Zofran) 4 mg PRN Q6HRS PRN IVP NAUSEA/VOMITING, 1st CHOICE 12/11/21 14:45 12/12/21 04:11 Sodium Chloride 1,000 ml @ 100 mls/hr Q10H IV 12/11/21 14:45 12/12/21 07:42 Acetaminophen (Tylenol) 650 mg PRN Q4HRS PRN PO TEMP OVER 100.4F OR MILD PAIN 12/11/21 14:45 12/12/21 13:43 Enoxaparin Sodium (Lovenox 40mg Syringe) 40 mg Q24H SQ 12/11/21 15:00 12/12/21 13:43 Pantoprazole Sodium (PROTONIX VIAL for IV PUSH) 40 mg DAILYAC IVP 12/12/21 07:30 12/12/21 07:41 Magnesium Sulfate 50 ml @ 25 mls/hr 1X ONCE IV 12/12/21 10:00 12/12/21 11:59 DC 12/12/21 09:49 Potassium Chloride (Klor-Con) 40 meq BID PO 12/12/21 09:00 12/13/21 08:59 12/12/21 09:49 Phenyleph/Shark Oil/Min Oil/Petrol (Preparation H) 1 emily PRN QID PRN RC RECTAL PAIN 12/12/21 11:00 12/12/21 11:27 Justifications for Admission Other Justification Intractable nausea vomiting MARKEL QUIÑONEZ MD Dec 12, 2021 14:21
[2021-12-12 14:23] LABS: BILIRUBIN,URINE NEGATIVE (NEG); CLARITY,URINE HAZY; COLOR,URINE YELLOW; NITRITE,URINE NEGATIVE (NEG); PH,URINE 6.5 (<5.0-8.0); PROTEIN,URINE NEGATIVE (NEG-TRACE); UROBILINOGEN,URINE 0.2 mg/dL (0.2 mg/dL)
[2021-12-12 14:26] LABS: HYALINE CASTS, URINE FEW /HPF; YEAST,URINE PRESENT /HPF
[2021-12-12 14:27] LABS: BACTERIA,URINE MODERATE /HPF (0-FEW); RBC,URINE OCC /HPF (0-2); WBC,URINE OCC /HPF (0-4)
[2021-12-12 15:00] VITALS: BP 163/107
[2021-12-12] MEDS: GABAPENTIN 300 MG CAPSULE. PO SCH ×2 (15:03→21:04)
[2021-12-12] MEDS: CYCLOBENZAPRINE 10 MG TABLET. PO SCH ×2 (15:03→21:04)
[2021-12-12] MEDS: MECLIZINE HCL 12.5 MG TABLET. PO SCH (15:04)
[2021-12-12] MEDS: traMADol 50 MG TABLET PO PRN ×2 (15:04→21:04)
[2021-12-12] MEDS: METOPROLOL SUCC 24HR ER 100 MG TAB.ER.24H. PO SCH (15:04)
[2021-12-12] MEDS: diphenhydrAMINE HCL 25 MG CAPSULE PO SCH (15:04)
[2021-12-12 18:57] VITALS: BP 133/83
[2021-12-12 23:00] VITALS: BP 138/78
[2021-12-13] VITALS (7 sets, daily range): BP systolic 113–162; BP diastolic 70–101
[2021-12-13] MEDS: traMADol 50 MG TABLET PO PRN ×3 (05:30→21:58)
[2021-12-13] MEDS: IV NORMAL SALINE 1000ML BAG 1,000 ML IV SCH ×2 (05:31→18:01)
[2021-12-13 08:20] LABS: CALCIUM 8.4 mg/dL (8.5-10.1); CREATININE 0.7 mg/dL (0.6-1.0); GFR 101.6; MAGNESIUM 1.9 mg/dL (1.8-2.4); POTASSIUM 3.5 mmol/L (3.5-5.1)
[2021-12-13 08:35] LABS: BASO % 1 % (0-3); EOS # 0.1 x10^3/uL (0.0-0.7); EOS % 2 % (0-3); HEMATOCRIT 40.1 % (36.0-47.0); HEMOGLOBIN 12.7 g/dL (12.0-15.5); LYMPH # 3.8 x10^3/uL (1.0-4.8); LYMPH % 59 % (24-48); MEAN CORPUSCULAR HEMOGLOBIN 27 pg (25-35); MEAN CORPUSCULAR HGB CONC 32 g/dL (31-37); MEAN CORPUSCULAR VOLUME 86 fL (79-100); MONO # 0.7 x10^3/uL (0.0-1.1); MONO % 12 % (0-9); NEUT # 1.8 x10^3/uL (1.8-7.7); NEUT % 28 % (31-73); PLATELET COUNT 371 x10^3/uL (140-400); RED BLOOD COUNT 4.69 x10^6/uL (3.50-5.40); RED CELL DISTRIBUTION WIDTH 13.3 % (11.5-14.5); WHITE BLOOD COUNT 6.5 x10^3/uL (4.0-11.0)
[2021-12-13] MEDS: diphenhydrAMINE HCL 25 MG CAPSULE PO SCH (08:46)
[2021-12-13] MEDS: MECLIZINE HCL 12.5 MG TABLET. PO SCH (08:46)
[2021-12-13] MEDS: GABAPENTIN 300 MG CAPSULE. PO SCH ×3 (08:47→21:58)
[2021-12-13] MEDS: CYCLOBENZAPRINE 10 MG TABLET. PO SCH ×3 (08:47→21:58)
[2021-12-13] MEDS: METOPROLOL SUCC 24HR ER 100 MG TAB.ER.24H. PO SCH (08:47)
[2021-12-13] MEDS: PANTOPRAZOLE IV PUSH 40 MG VIAL. IVP SCH (08:48)
[2021-12-13] MEDS: ONDANSETRON PF 4 MG/2 ML VIAL. IVP PRN ×2 (08:56→21:58)
--- NOTE | 2021-12-13 10:09 | EKG ---
[facility] [address] [place] [address] Test Date: 2021-12-11 Test Time: 07:20:10 Pat Name: ANGEL RODRIGUEZ Department: Room: [facility] Gender: F [employer]olta[employer] Installer: : [id number] Requested By: LEONCIO ALMODOVAR Order Number: [id number] Reading MD: Tray Hitchcock MD Measurements Intervals [place] Rate: 131 P: -21 SC: 110 QRS: 9 QRSD: 74 T: -7 QT: 316 QTc: 472 Interpretive Statements SINUS TACHYCARDIA LATERAL ISCHEMIA Electronically Signed On 12-17-2021 11:53:00 [employer] by Tray Hitchcock MD
[2021-12-13] MEDS ORDERED: LORA0.5T96 PO (10:15)
[2021-12-13] MEDS ORDERED: LOPERAMIDE 2 MG CAPSULE PO PRN (10:15)
[2021-12-13] MEDS ORDERED: LOPE2TAB27 PO (10:15)
--- NOTE | 2021-12-13 10:54 | NUR ---
SW following. Discussed with RN, discharge order for home with self care if C-diff negative. RN advised no SW needs.
--- NOTE | 2021-12-13 11:39 | DS ---
DATE OF DISCHARGE: 12/13/2021 ADMISSION DIAGNOSES: Intractable nausea, vomiting with probable gastroenteritis. DISCHARGE DIAGNOSES: Resolving gastroenteritis; chronic cannabinoid use; possible cyclic vomiting syndrome; resolving hypokalemia; resolving hyponatremia, hypochloremia; resolving volume depletion; atypical chest pain. HOSPITAL COURSE: The patient is a pleasant, middle-aged female who presented with some nausea, vomiting and diarrhea. We gave her p.r.n. antiemetics and IV fluids. Today, I ordered some p.r.n. loperamide. She is doing much better, looks good. We plan to advance her diet. If her C. diff testing is negative, we hope to discharge this afternoon. DISPOSITION: Home. ACTIVITY: As tolerated. DIET: Low sodium. DISCHARGE MEDICATIONS: Please see the MRAD. P.r.n. Imodium, lorazepam 0.5 q.6, amlodipine 10 a day, cyclobenzaprine 10 t.i.d., famotidine 20 b.i.d., gabapentin 300 t.i.d., meclizine 12.5 daily, metoprolol 200 a day, Protonix 40 a day, Januvia 50 a day and Ultram 50 q.6. TOTAL TIME: [address]: Kayy TID: [id number]
[2021-12-13] MEDS: ENOXAPARIN 40 MG/0.4 ML SYRINGE. SQ SCH (15:32)
[2021-12-14] MEDS: IV NORMAL SALINE 1000ML BAG 1,000 ML IV SCH ×2 (02:45→03:03)
[2021-12-14 03:51] VITALS: BP 124/68
[2021-12-14 06:45] LABS: CALCIUM 8.3 mg/dL (8.5-10.1); CREATININE 0.7 mg/dL (0.6-1.0); GFR 101.6; MAGNESIUM 1.6 mg/dL (1.8-2.4); POTASSIUM 3.4 mmol/L (3.5-5.1)
[2021-12-14 06:59] LABS: BASO % 1 % (0-3); EOS # 0.1 x10^3/uL (0.0-0.7); EOS % 2 % (0-3); HEMATOCRIT 36.9 % (36.0-47.0); HEMOGLOBIN 11.7 g/dL (12.0-15.5); LYMPH # 4.2 x10^3/uL (1.0-4.8); LYMPH % 57 % (24-48); MEAN CORPUSCULAR HEMOGLOBIN 27 pg (25-35); MEAN CORPUSCULAR HGB CONC 32 g/dL (31-37); MEAN CORPUSCULAR VOLUME 86 fL (79-100); MONO # 0.6 x10^3/uL (0.0-1.1); MONO % 9 % (0-9); NEUT # 2.4 x10^3/uL (1.8-7.7); NEUT % 32 % (31-73); PLATELET COUNT 359 x10^3/uL (140-400); RED BLOOD COUNT 4.31 x10^6/uL (3.50-5.40); RED CELL DISTRIBUTION WIDTH 13.6 % (11.5-14.5); WHITE BLOOD COUNT 7.4 x10^3/uL (4.0-11.0)
[2021-12-14 07:00] VITALS: BP 117/78
[2021-12-14] MEDS: ONDANSETRON PF 4 MG/2 ML VIAL. IVP PRN (08:45)
[2021-12-14] MEDS: CYCLOBENZAPRINE 10 MG TABLET. PO SCH ×2 (08:45→14:15)
[2021-12-14] MEDS: traMADol 50 MG TABLET PO PRN (08:45)
[2021-12-14] MEDS: METOPROLOL SUCC 24HR ER 100 MG TAB.ER.24H. PO SCH (08:46)
[2021-12-14] MEDS: GABAPENTIN 300 MG CAPSULE. PO SCH ×2 (08:46→14:15)
[2021-12-14] MEDS: diphenhydrAMINE HCL 25 MG CAPSULE PO SCH (08:47)
[2021-12-14] MEDS: PANTOPRAZOLE IV PUSH 40 MG VIAL. IVP SCH (08:47)
[2021-12-14] MEDS: MECLIZINE HCL 12.5 MG TABLET. PO SCH (08:47)
[2021-12-14] MEDS ORDERED: POTASSIUM CHLORIDE 20 MEQ TABLET.ER. PO SCH (09:00)
--- NOTE | 2021-12-14 10:35 | NUR ---
SW following. Discussed with RN, anticipate discharge home today. RN advised no SW needs.
[2021-12-14 11:00] VITALS: BP 146/99
--- NOTE | 2021-12-14 11:21 | DISCH ---
DISCHARGE INSTRUCTIONS Condition on Discharge Condition on Discharge: Stable Activity After Discharge Activity Instructions for Disc: Activity as tolerated Exercise Instruction after Dis: Walk 30 min, 5 x per week Driving Instructions after Dis: Do not drive today Weight Bearing Status after Di: No restrictions Diet after Discharge Diet after Discharge: Cardiac Follow-Up Follow up with: PCP within 2 weeks to follow-up on your stool studies MARKEL QUIÑONEZ MD Dec 14, 2021 11:20
[2021-12-14 15:00] VITALS: BP 121/77
--- NOTE | 2021-12-14 15:25 | NUR ---
Discharge Note: JOSEY RODRIGUEZ [employer] Discharge instructions and discharge home medications reviewed with Patient and a copy given. All questions have been answered and understanding verbalized. The following instructions and handouts were given: follow up instructions, medication education. Discontinued lines and drains: 22 left wrist, tip intact. patient tolerated well. Patient discharged to home with self care via family.
== END 2021-12-14 15:20 | disposition home or self-care (01) | DRG 392 ==
LOC: ER 04:54 → 5 SOUTH 07:51 → 5 NORTH 12-13 15:39 → OBSVTOIN 12-13 16:40
PROVIDERS: ADMIT Internal Medicine; ATTEND Internal Medicine
DX: K52.9 Noninfective gastroenteritis and colitis, unspecified (principal); E87.1 Hypo-osmolality and hyponatremia; K57.30 Diverticulosis of large intestine without perforation or abscess without bleeding; E87.8 Other disorders of electrolyte and fluid balance, not elsewhere classified; F12.90 Cannabis use, unspecified, uncomplicated; W01.0XXA Fall on same level from slipping, tripping and stumbling without subsequent striking against object, initial encounter; Y93.01 Activity, walking, marching and hiking; Z20.822 Contact with and (suspected) exposure to COVID-19; R00.0 Tachycardia, unspecified; Z04.3 Encounter for examination and observation following other accident; R07.89 Other chest pain; E87.6 Hypokalemia; R11.15 Cyclical vomiting syndrome unrelated to migraine; Y92.89 Other specified places as the place of occurrence of the external cause; Y99.8 Other external cause status
CPT/HCPCS: 36415; 71260; 74177; 80048; 80053; 80307; 81001; 83605; 83690; 83735; 83880; 84100; 84443; 84484; 85025; 85610; 85730; 87086; 87177; 87209; 87428; 87493; 93005; 94640; 94760; 96361; 96374; 96375; C9113; G0378; G0379; J1650; J2270; J2405; J3475; J3490; J7030; Q9967; 99285-25; J8597; Q0163; Q0169